=== PATIENT | female | born 2000 | race Two or more races ===

== ENCOUNTER 2021-07-16 08:30 | Outpatient (CLI) | payer OTHER | END 2021-07-16 08:44 | disposition home or self-care (01) | LOC: TOM 08:30 | PROVIDERS: ATTEND General Practice | DX: R55 Syncope and collapse (principal); R42 Dizziness and giddiness ==

== ENCOUNTER 2022-03-01 07:34 | Outpatient (CLI) | payer OTHER | END 2022-03-01 07:42 | disposition home or self-care (01) | LOC: SONOGRAMA 07:34 | PROVIDERS: ATTEND Obstetrics & Gynecology | DX: N83.201 Unspecified ovarian cyst, right side (principal) ==

== ENCOUNTER 2023-04-27 13:05 | Outpatient (CLI) | payer OTHER | END 2023-04-27 13:15 | disposition home or self-care (01) | LOC: RAD 13:05 | PROVIDERS: ATTEND General Practice | DX: R05.9 Cough, unspecified (principal); R06.02 Shortness of breath ==